=== PATIENT | female | born 1985 | race Caucasian/White ===

== ENCOUNTER → 2025-05-30 13:50 | Outpatient (CLI) | payer BC, SELFPAY ==
--- NOTE | 2025-05-30 13:51 | DI.MG.S_ITS ---
MM screening mammo BI: 05/30/2025. BI-RADS: 1 CLINICAL: 39-year old female for bilateral screening mammogram. Tyrer-Cuzick lifetime risk of 14.7%. No personal or first-degree family history of breast cancer. PRIOR EXAMS: None. This is a baseline mammogram. MAMMOGRAPHY TECHNIQUE: 2D and 3D (tomosynthesis) digital mammographic views obtained, with additional images as needed for full coverage. Current study was also evaluated with a Computer Aided Detection (CAD) system. DENSITY C. The breasts are heterogeneously dense, which may obscure small masses. MAMMOGRAPHY FINDINGS Bilateral: No suspicious mass, asymmetry, microcalcification, or other abnormality seen. IMPRESSION: * No evidence of malignancy. RECOMMENDATIONS Bilateral * Annual screening mammography. OVERALL ASSESSMENT CATEGORY BI-RADS-1: Negative. The [employer] recommends annual screening mammography beginning at age 40 for women with average risk of breast cancer. ELECTRONICALLY SIGNED: Tamika Jaramillo M.D. on 06/03/2025 at 03:02:53 AM PT Interpreting Station ID: [id number]
== END ==
PROVIDERS: PCP Family Medicine; Referring Provider Family Medicine; Visit Provider Family Medicine
DX: Z12.31 Encounter for screening mammogram for malignant neoplasm of breast (principal); R92.333 Mammographic heterogeneous density, bilateral breasts
CPT/HCPCS: 77063; 77067

== ENCOUNTER → 2025-05-30 16:16 | Outpatient (CLI) | payer BC, SELFPAY ==
--- NOTE | 2025-05-30 16:20 | DI.US.S_ITS ---
PROCEDURE: US PELVIC COMPLETE INDICATIONS: fibroids TECHNIQUE: Real-time scanning was performed of the pelvic organs, with image documentation. Additional endovaginal scanning was necessary due to incomplete visualization of the adnexal and endometrial structures by transabdominal scanning. COMPARISON: None. FINDINGS: Uterus: 9 x 3.7 cm. The endometrium measures 10 mm. Moderate sized FIGO 2-5 fibroid is seen in the anterior uterus measures 4.6 x 3.7 cm. Ovaries: Nonenlarged ovaries, measuring 2 mL on the right and 7 mL on the left. Other: No pathologic free abdominal or pelvic fluid. IMPRESSION: 4.6 x 3.7 cm intramural anterior uterine fibroid. Endometrium measures 10 mm, within normal limits for age. Nonenlarged ovaries. Dictated by: Onel Bedoya M.D. on 05/31/2025 at 6:23 Approved by: Onel Bedoya M.D. on 05/31/2025 at 6:25
== END ==
LOC: US 16:18
PROVIDERS: PCP Family Medicine; Referring Provider Family Medicine; Visit Provider Family Medicine
DX: D25.1 Intramural leiomyoma of uterus (principal)
CPT/HCPCS: 76830; 76856